=== PATIENT | male | born 1995 | race Caucasian/White ===

== ENCOUNTER 2019-03-03 21:32 | Emergency (ER) | payer SELFPAY ==
[~2019-03-03] VITALS: Ht 167.6 cm; Wt 100.0 kg
[2019-03-03 21:40] VITALS: BP 149/83
--- NOTE | 2019-03-03 21:45 | NUR ---
PT AMBULATES TO LOBBY WITH STEADY GAIT AND VSS. FAMILY ACCOMPANIED.
--- NOTE | 2019-03-03 22:39 | NUR ---
PT CALLED WITH NO RESPONSE.
--- NOTE | 2019-03-03 23:00 | NUR ---
PT CALLED WITH NO RESPONSE.
--- NOTE | 2019-03-03 23:20 | NUR ---
PT CALLED WITH NO RESPONSE. PT LWBS AT [id number].
== END 2019-03-03 22:39 | disposition left against medical advice (07) ==
LOC: MED 21:32
DX: T78.40XA Allergy, unspecified, initial encounter (principal); L29.9 Pruritus, unspecified; Z53.21 Procedure and treatment not carried out due to patient leaving prior to being seen by health care provider; X58.XXXA Exposure to other specified factors, initial encounter